=== PATIENT | male | born 1965 | race Caucasian/White ===

== ENCOUNTER 2021-07-31 17:26 | Emergency (ER) | payer OTHER, SELFPAY ==
[2021-07-31 17:32] VITALS: BP 148/88; PULSE 77; RESP 16; TEMP 35.9; O2SAT 99
[2021-07-31 17:36] VITALS: BP 148/88; PULSE 77; RESP 16; TEMP 35.9; O2SAT 99
--- NOTE | 2021-07-31 17:37 | ED.URI ---
HPI - URI/Sore Throat General Chief Complaint: Upper Respiratory Infection Stated Complaint: sore throat,left ear pain Time Seen by Provider: 07/31/21 17:37 Source: patient Mode of arrival: ambulatory Limitations: no limitations History of Present Illness HPI Narrative: 56-year-old male presented for complaint of sore throat and left ear pain, onset today. Endorses the ear pain is intermittent, sharp and shooting. States he takes a daily allergy medication and took an extra dose this evening. Has not taken anything for pain. Denies associated headache, tinnitus, dizziness, nausea, vomiting, fevers or chills. He has not posted for COVID stated for flu. He denies sick contacts. Related Data Home Medications Medication Instructions Recorded Confirmed amlodipine 07/31/21 hydrochlorothiazide 07/31/21 Allergies Allergy/AdvReac Type Severity Reaction Status Date / Time No Known Allergies Allergy Verified 05/16/12 18:20 Review of Systems Review of Systems: All systems reviewed & are unremarkable except as noted in HPI and below PMFSH Comments At time of signature, agree with nursing past medical, surgical, social and family history. There is no relevant family history pertinent to the presenting complaint Exam Narrative: GENERAL: Well-appearing HEAD: Normocephalic EYES: conjunctivae clear ENT: Nares clear. Mucous membranes moist. Right TM pearly roberts with dull light reflex, left canal erythematous with fluid and bulging TM; no tragal tenderness. Oropharynx not erythematous without lesions. no drooling, no hoarseness, no trismus, uvula midline. NECK: Supple. No lymphadenopathy CHEST: Clear to auscultation, breath sounds equal. HEART: Regular rate and rhythm. No murmur heard. SKIN: Warm, dry, no rash. NEURO: Alert and oriented x3. PSYCH: Normal mood and affect Course Course Emergency Course: Patient is aware of diagnosis, understands and agrees to treatment plan. Anticipatory guidance given. Patient agrees to follow-up as directed and is aware of reasons to seek care at the emergency department. Portions of this record may have been created with voice recognition software Level of Care: Express Care Visit Vital Signs Vital signs: Vital Signs Temperature 96.7 F L 07/31/21 17:32 Pulse Rate 77 07/31/21 17:32 Respiratory Rate 16 07/31/21 17:32 Blood Pressure 148/88 H 07/31/21 17:32 Pulse Oximetry 99 07/31/21 17:32 Oxygen Delivery Room Air 07/31/21 17:32 Temperature 96.7 F L 07/31/21 17:36 Pulse Rate 77 07/31/21 17:36 Respiratory Rate 16 07/31/21 17:36 Blood Pressure 148/88 H 07/31/21 17:36 Pulse Oximetry 99 07/31/21 17:36 Oxygen Delivery Room Air 07/31/21 17:36 Reviewed MDM - URI/Sore Throat MDM Narrative Medical decision making narrative: Based on PE he is advised on supportive treatments for allergic rhinitis, and if no improvement he can start the abx. v/u. Differential Diagnosis Differential diagnosis: Likely upper respiratory infection, otitis media, viral infection and pharyngitis Discharge Plan Discharge Clinical Impression: Otitis media Qualifiers: Otitis media type: suppurative Chronicity: acute Laterality: left Recurrence: non-recurrent Spontaneous tympanic membrane rupture: without spontaneous rupture Qualified Code(s): H66.002 - Acute suppurative otitis media without spontaneous rupture of ear drum, left ear Patient Disposition: Home, Self-Care Condition: Stable Instructions: Antibiotic Form, Ear Infection (ED) Additional Instructions: Take antibiotics as directed. Continue antihistamine such as Benadryl, Zyrtec or Cecy for sinus congestion Flonase nasal spray, 1 spray in each nostril once daily Symptomatic treatment includes: rest, fluids, and increase humidity of the air at home. Tylenol 1000mg every 8 hours as needed to reduce fever, pain, alternate with ibuprofen 600 mg every 8 hours Please schedule a follow-up visit wi
== END 2021-07-31 17:45 | disposition home or self-care (01) ==
PROVIDERS: Emergency Provider Nurse Practitioner Family; PCP Family Medicine
DX: H66.002 Acute suppurative otitis media without spontaneous rupture of ear drum, left ear (principal); E78.00 Pure hypercholesterolemia, unspecified; I10 Essential (primary) hypertension
CPT/HCPCS: 99203; G0463

== ENCOUNTER 2024-09-28 06:52 | Outpatient (CLI) | payer OTHER, SELFPAY ==
--- OUTSIDE RECORDS SUMMARY | 2024-09-28 06:54 | XMS_ITS | Encounter Summary ---
Author Organization [facility] Healthcare Address [address] [place] [address] Care Team Providers Care Interline Clerk Name Role Phone Wil Chavira MD Primary Care Provider [phone] Encounter Details Date Type Department Care Team (Late st Contact Info) Description 08/30/2024 Results Follow-Up [facility] Primary Care at [id number] [place] [address] Wil Chavira MD [address] [place] [address] [address] [place] [address] Lipid panel, Comprehensive metabolic panel, CBC with auto differential, Hemoglobin A1c Social History Tobacco Use Types Packs/Day Years Used Date Smoking Tobacco: Never Cigarettes Passive Smoke Exposure: Never Smokeless Tobacco: Never Alcohol Use Standard Drinks/Week Comments Yes 0 (1 standard drink = 0.6 oz pur e alcohol) AUDIT-C Answer Date Recorded Q1: How often do you have a drink containing alc ohol? Monthly or less 01/13/2023 Q2: How many drinks containi ng alcohol do you have on a typical day when you are drinking? 1 or 2 01/13/2023 Q3: How often do you have si x or more drinks on one occasion? Monthly 01/13/2023 PHQ-2 Answer Date Recorded PHQ-2 Total Score (If total score is 3 or more points, staff should administer the PHQ-9) 0 02/12/2024 Exercise Vital Sign Answer Date Recorde d On average, how many days pe r week do you engage in moderate to strenuous exercise (like a brisk walk)? 3 days 05/23/2020 On average, how many minutes do you engage in exercise at this level? 90 min 05/23/2020 Education Answer Date Recorded What is the highest level of school you have completed or the highest degree you have received? 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
--- OUTSIDE RECORDS SUMMARY | 2024-09-28 06:54 | XMS_ITS | Encounter Summary ---
Author Organization [facility] Healthcare Address [address] [place] [address] Care Team Providers Care Senior Clinical Project Manager Name Role Phone Wil Chavira MD Primary Care Provider [phone] Reason for Visit * Reason Onset Date Comments Medical Question/Miscellaneous 09/22/2024 Encounter Details Date Type Department Care Team (Late st Contact Info) Description 09/22/2024 Telephone [facility] Medical [facility] Primary Care at [address] [address] Wil Chavira MD [address] [place] [id number] Medical Question/Miscellaneous Social History Tobacco Use Types Packs/Day Years Used Date Smoking Tobacco: Never Passive Smoke Exposure: Never Smokeless Tobacco: Never [...] points, staff should administer the PHQ-9) 0 09/20/2024 Exercise Vital Sign Answer Date Recorde d [...] on file 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 Patient was seen in the office on 09/20 but those notes do not include any mention of his cpap usage, whether or not he is benefiting from the use, and any issues. Patient does have a 3 month follow up appt on 12/15 but that will be too late for a cpap follow up. [facility] home medical will reach out to the patient and encourage him to make a sooner appt. Does message need to be routed? No Benefiting, showing improvement, issues documented in this encounter Plan of Treatment Not on file documented as of this encounter Visit Diagnoses Not on filedocumented in this encounter Care Teams Senior Clinical Project Manager Relationship Specialty Start Date End Date Wil Chavira MD [address] [address] PCP - General 05/31/16 documented as of this encounter
--- OUTSIDE RECORDS SUMMARY | 2024-09-28 06:55 | XMS_ITS | Encounter Summary ---
Author Organization [facility] Address [address] [place] [address] Phone Care Team Providers Care Die Maker Bench Stamping Name Role Phone Provider, None Primary Care Provider Mengabl e Encounter Details Date Type Department Care Team (Late st Contact Info) Description 10/10/[address] [facility] Ad[facility] [address] [place] [address] Rico Rodriguez [address] [facility] [address] [place] [address] Social History Tobacco Use Types Packs/Day Years Used Date Smoking Tobacco: Never Assessed Sex and Gender Information Value Date Recorded Sex Assigned at Male 10/10/2023 3:25 PM CDT Legal Sex Male 3:15 PM CDT Gender Identity Not on file Sexual Orientation Not on file documented as of this encounter Plan of Treatment Not on file documented as of this encounter Visit Diagnoses Not on filedocumented in this encounter Care Teams Die Maker Bench Stamping Relationship Specialty Start Date End Date Provider, None [place] PCP - General 10/10/23 documented as of this encounter
--- OUTSIDE RECORDS SUMMARY | 2024-09-28 06:55 | XMS_ITS | Clinical Summary ---
Author Organization [facility] Address [address] [place] [address] Phone Care Team Providers Care Crop And Soil Scientist Name Role Phone Provider, None Primary Care Provider Unavailabl e Social History Tobacco Use Types Packs/Day Years Used Date Smoking Tobacco: Never Assessed Sex and Gender Information Value Date Recorded Sex Assigned at Male 10/10/2023 3:25 PM CDT Legal Sex Male 3:15 PM CDT Gender Identity Not on file Sexual Orientation Not on file Plan of Treatment Health Maintenance Due Date Last Done Comments Hepatitis C Virus (HCV) Screening 1966 Hepatitis B Immunization (1 of 3 - 19+ 3-dose series) 1985 Cologuard 2011 Immunochemical Fecal Occult Blood 2011 Zoster Immunization (1 of 2) 2016 PSA Discussion 2021 SARS-COV-2 Immunization ( - 2023- season) 2023 06/27/2020, 05/15/2020 Influenza Immunization (#1) 2024 01/31/2022 Colonoscopy 04/28/2028 04/28/2018 Colorectal Cancer Screening 04/28/2028 Respiratory Syncytial Virus (RSV) Immunization (Adult) (1 - 1-dose 75+ series) 2041 TdaP Immunization Completed 03/18/2011 Pneumococcal Immunization (5 0+ years) Completed 06/17/2023 Pneumococcal Immunization Combined Discontinued 06/17/2023 Human Papillomavirus (HPV) Immunization Aged Out No longer eligible based on patient's age to complete this topic Meningococcal Immunization (ACWY) Aged Out No longer eligible based on patient's age to complete this topic Rotavirus Immunization Aged Out No lo nger eligible based on patient's age to complete this topic Insurance GENERIC Care Teams Crop And Soil Scientist Relationship Specialty Start Date End Date Provider, None [place] PCP - General 10/10/23
--- OUTSIDE RECORDS SUMMARY | 2024-09-28 06:55 | XMS_ITS | Referral Summary ---
Author Organization [facility] Building [address] Address [address] [place] [address] Care Team Providers Care Receivables Specialist Name Role Phone Wil Chavira MD Primary Care Provider Encounters Date Type Department Care Team Description 09/22/2024 Telephone [facility] at [address] [phone] Wil Chavira MD Medical Question/Miscellaneous 09/20/2024 4:15 PM CDT Office Visit [facility] at [address] [address] Wil Chavira MD Benign hypertension (Primary Dx); Multiple-type hyperlipidemia; Obesity, diabetes, and hypertension syndrome (HCC); Decreased hearing, bilateral; Multiple-type hyperlipidemia 08/30/2024 Results Follow-Up [facility] at [address] [phone] Wil Chavira MD Lipid panel, Comprehensive metabolic panel, CBC with auto differential, Hemoglobin A1c 08/27/2024 Orders Only [facility] at [address] [address] Wil Chavira MD from Last 3 Months Allergies Active Allergy Reactions Criticality Noted Date Comments Losartan Diarrhea Low 06/20/2020 Other Stomach upset Low 03/15/2024 Statin medication Medications metFORMIN XR (GLUCOPHAGE XR) 500 mg 24 hr tabletIndications: Uncontrolled type 2 diabetes mellitus with hyperglycemia (HCC) TAKE ONE TABLET (500 MG TOTAL) BY MOUTH DAILY WITH BREAKFAST 90 tablet 3 01/22/20 24 Active amLODIPine (NORVASC) 5 mg tabletIndications: Obesity, diabetes, and hypertension syndrome (HCC) Take 2 tablets (10 mg total) by mouth daily 01/22/20 24 Active tadalafiL (CIALIS) 20 mg tabletIndications: Low libido Take 1 tablet (20 mg total) by mouth daily as needed for erectile dysfunction 10 tablet 3 03/15/19 25 Active hydroCHLOROthiazid e 12.5 mg tabletIndications: Obesity, diabetes, and hypertension syndrome (HCC) Take 1 tablet (12.5 mg total) by mouth daily 90 tablet 3 03/24/19 25 026 Active icosapent ethyL (VASCEPA) 1 gram capsuleIndications :Multiple-type hyperlipidemia TAKE TWO CAPSULES (2 GRAM TOTAL) BY MOUTH TWO (2) TIMES A DAY 400 capsule 1 04/19/19 25 Active pitavastatin calcium (LIVALO) 2 mg tabletIndications: Multiple-type hyperlipidemia Take 1 tablet (2 mg total) by mouth nightly 30 tablet 2 09/21/19 25 Active pitavastatin calcium (LIVALO) 2 mg tabletIndications: Multiple-type hyperlipidemia Take 1 tablet (2 mg total) by mouth nightly 30 tablet 2 03/15/19 25 025 Discontin ued(Reord er) Active Problems Problem Noted Date Diagnosed Date Sleep apnea 03/31/2024 Class 1 obesity due to exces s calories without serious comorbidity with body mass index (BMI) of 33.0 to 33.9 in adult 03/15/2024 Assessment & Plan (03/15/2024 10:53 AM DIRECTOR INTERNATIONAL): BMI Follow-up includes: nutrition counseling, exercise counseling, and education provided. Obesity, diabetes, and hypertension syndrome Assessment & Plan (02/13/2024 10:36 AM DIRECTOR INTERNATIONAL): BMI Follow-up includes: nutrition counseling, exercise counseling, and education provided. Assessment & Plan (06/17/2023 3:35 PM CDT): Blood Pressure Follow-up: Lifestyle modifications education provided on sodium reduction, increase physical activity, reduce alcohol consumption, and weight reduction. BMI Follow-up includes: nutrition counseling, exercise counseling, and education provided. Assessment & Plan (03/20/2023 1:54 PM DIRECTOR INTERNATIONAL): BMI Follow-up includes: nutrition counseling, exercise counseling, and education provided. 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 Number should be on the referral order sheet. A1c was 10.7%, normal is between 4.5 and 5.7% and the threshold for diabetes is 6.5%. This means your blood sugar is running around 260 g per dL on average. Given the elevation, I will forego the confirmatory A1c. I am encouraging cutting carb intake to less than 25 g of carbohydrate per meal, or under 75-80 g of carbohydrate per day. Discussed increasing protein intake, could aim for about 60 g per day broken up in divided meals. Exercise should be part of the equation. Regular exercise approximately 150 minutes per week of moderate cardio were 75 minutes per week of vigorous cardio should be a goal. Screening for colon cancer 04/09/2018 Overview (04/09/2018): Added automatically from request for surgery [id number] Left sided sciatica 06/02/2017 Multiple-type hyperlipidemia 07/17/2013 Overview (06/06/2016): Mixed hyperlipidemia Assessment & Plan (06/20/2020 4:34 PM CDT): Just started his Crestor as of yesterday (06/19). Benign hypertension 07/17/2013 Overview (06/08/2016): Benign hypertension Assessment & Plan (06/21/2020 9:09 AM CDT): BP mildly elevated in office, has not been taking the Losartan d/t diarrhea though. Will have patient start Amlodipine-potential side effects reviewed, keep BP log and bring to f/u in 4 weeks. If noticing BP consistently >140/90 he is to reach out sooner for possible increase. Immunizations Immunization Administration Dates Next Due Influenza, Quadrivalent, Spl it, Preservative Free, Intramuscular 01/31/2022 Influenza, Unspecified 03/15/2024(Deferr ed: Patient Refused),01/20/2024(Deferred: Patient Refused),03/18/2023(Deferred: Patient Refused),03/04/2023(Deferred: Patient Refused),10/01/2022(Deferred: Patient Refused),08/31/2022(Deferred: Patient Refused),03/03/2022(Deferred: Patient Refused),03/03/2021(Deferred: Patient Refused),03/03/2020(Deferred: Patient Refused),12/02/2019(Deferred: Patient Refused),12/01/2018(Deferred: Patient Refused),04/09/2018(Deferred: Patient Refused) Pfizer SARS-CoV-2 Monovalent Vaccination (12+ Yrs) PURPLE 05/15/2020 Pneumococcal Conjugate Pcv20 06/17/2023 Tdap 03/18/2011 Social History Tobacco Use Types Packs/Day Years Used Date Smoking Tobacco: Never Passive Smoke Exposure: Never Smokeless Tobacco: Never Tobacco Cessation:Counseling Given: Not Answered Alcohol Use Standard Drinks/Week Comments Yes 0 [...] on file Legal Sex Male 1:29 PM DIRECTOR INTERNATIONAL Gender Identity Not on file Sexual Orientation Not on file 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 Not on file Not on file Last Filed Vital Signs Vital Sign Reading Time Taken Comments Blood Pressure 124/82 09/20/2024 4:13 PM CDT Pulse 70 09/20/2024 4:13 PM CDT Temperature 36.5 C (97.7 F) 09/20/2024 4:13 PM CDT Respiratory Rate 16 03/15/2024 10:47 AM DIRECTOR INTERNATIONAL Oxygen Saturation 97% 09/20/2024 4:13 PM CDT Inhaled Oxygen Concentration - - Weight 105.7 kg (233 lb) 09/20/2024 4:13 PM CDT Height 177.8 cm (5' 10) 09/20/2024 4:13 PM CDT Body Mass Index 33.43 09/20/2024 4:13 PM CDT Plan of Treatment Not on file Procedures Procedure Name Priority Date/Time Associated Diagnosis Comments HEMOGLOBIN A1C Routine 08/27/2024 8:41 AM CDT CBC WITH AUTO DIFFERENTIAL Routine 08/27/2024 8:41 AM CDT COMPREHENSIVE METABOLIC PANEL Routine 08/27/2024 8:41 AM CDT LIPID PANEL Routine 08/27/2024 8:41 AM CDT PSA SCREEN Routine 01/20/2024 12:22 PM DIRECTOR INTERNATIONAL DIABETES EYE EXAM Routine 12/30/2022 COLONOSCOPY 04/28/2018 12:53 PM DIRECTOR INTERNATIONAL from Last 3 Months or Most Recently Relevant to Health Maintenance Results * CBC with auto differential (08/27/2024 8:41 AM CDT) WBC 4.4 3.8 - 10.8 Thousand/u L [facility] RBC, POC 5.07 4.20 - 5.80 Million/uL [facility] Hgb 16.0 13.2 - 17.1 g/dL [facility] Hct 46.6 38.5 - 50.0 % [facility] MCV 91.9 80.0 - 100.0 fL [facility] MCH 31.6 27.0 - 33.0 pg [facility] MCHC 34.3 32.0 - 36.0 g/dL [facility] Comment: For adults, a slight decrease in the calculated MCHC value (in the range of 30 to 32 g/dL) is most likely not clinically significant; however, it should be interpreted with caution in correlation with other red cell parameters and the patient's clinical condition. Rdw 12.8 11.0 - 15.0 % [facility] Platelets 214 140 - 400 Thousand/u L [facility] MPV 9.7 7.5 - 12.5 fL [facility] Neutrophils, abs 2,530 1,500 - 7,800 cells/uL [facility] Lymphocytes, abs 1,294 850 - 3,900 cells/uL [facility] Monocyte abs 427 200 - 950 cells/uL [facility] Eosinophils, abs 119 15 - 500 cells/uL [facility] Basophils, abs 31 0 - 200 cells/uL [facility] Neutrophils 57.5 % [facility] Lymphocyte pct 29.4 % [facility] Monocytes 9.7 % [facility] Eosinophils 2.7 % [facility] Basophils 0.7 % [facility] 08/27/2024 8:41 AM CDT 08/27/2024 8:43 AM CDT Wil Chavira MD LAB BLOOD ORDERABLES Final Result Performing Organization Address [facility] de Phone Number [facility] [address] [place] [address] * (ABNORMAL) Hemoglobin A1c (08/27/2024 8:41 AM CDT) Hgb A1C 6.3(H) <5.7 % of total Hgb [facility] Comment: For someone without known diabetes, a hemoglobin A1c value between 5.7% and 6.4% is consistent with prediabetes and should be confirmed with a follow-up test. For someone with known diabetes, a value <7% indicates that their diabetes is well controlled. A1c targets should be individualized based on duration of diabetes, age, comorbid conditions, and other considerations. This assay result is consistent with an increased risk of diabetes. Currently, no consensus exists regarding use of hemoglobin A1c for diagnosis of diabetes for children. 08/27/2024 8:41 AM CDT 08/27/2024 8:43 AM CDT Wil Chavira MD LAB BLOOD ORDERABLES Final Result Performing Organization Address [facility] de Phone Number [facility] [address] [place] [address] * (ABNORMAL) Lipid panel (08/27/2024 8:41 AM CDT) Cholesterol 240(H) <200 mg/dL [facility] HDL 41 > OR = 40 mg/dL [facility] Triglycerides 134 <150 mg/dL [facility] LDL 172(H) mg/dL (calc) [facility] Comment: Reference range: <100 Desirable range <100 mg/dL for primary prevention; <70 mg/dL for patients with CHD or diabetic patients with > or = 2 CHD risk factors. LDL-C is now calculated using the Neel calculation, which is a validated novel method providing better accuracy than the Friedewald equation in the estimation of LDL-C. Raphael LEE et al. KELLIE. 2013;310(19): 8637-2260 (http://education.Prospectvision/faq/RXH670) Chol/HDL ratio 5.9(H) <5.0 (calc) [facility] Non-HDL, (LDL+VLDL) 199(H) <130 mg/dL (calc) [facility] Comment: For patients with diabetes plus 1 major ASCVD risk factor, treating to a non-HDL-C goal of <100 mg/dL (LDL-C of <70 mg/dL) is considered a therapeutic option. 08/27/2024 8:41 AM CDT 08/27/2024 8:43 AM CDT us Wil Chavira MD LAB BLOOD ORDERABLES Final Result [facility] [address] [place] [address] * (ABNORMAL) Comprehensive metabolic panel (08/27/2024 8:41 AM CDT) Glucose 120(H) 65 - 99 mg/dL [facility] Comment: Fasting reference interval For someone without known diabetes, a glucose value between 100 and 125 mg/dL is consistent with prediabetes and should be confirmed with a follow-up test. BUN 16 7 - 25 mg/dL [facility] Creatinine 0.95 0.70 - 1.30 mg/dL [facility] eGFR 93 > OR = 60 mL/min/1.7 3m2 [facility] BUN/creat ratio SEE NOTE: 6 - 22 (calc) [facility] Comment: Not Reported: BUN and Creatinine are within reference range. Sodium 136 135 - 146 mmol/L [facility] Potassium, pl 4.0 3.5 - 5.3 mmol/L [facility] Chloride 100 98 - 110 mmol/L [facility] CO2 28 20 - 32 mmol/L [facility] Calcium 9.3 8.6 - 10.3 mg/dL [facility] Protein, sr 7.4 6.1 - 8.1 g/dL [facility] Albumin 5.0 3.6 - 5.1 g/dL [facility] GLOBULIN 2.4 1.9 - 3.7 g/dL (calc) [facility] Alb/glob ratio 2.1 1.0 - 2.5 (calc) [facility] Bilirubin, total 1.7(H) 0.2 - 1.2 mg/dL [facility] Alk phos 73 35 - 144 U/L [facility] AST 18 10 - 35 U/L [facility] ALT (SGPT) 23 9 - 46 U/L [facility] 08/27/2024 8:41 AM CDT 08/27/2024 8:43 AM CDT Wil Chavira MD LAB BLOOD ORDERABLES Final Result Performing Organization Address City/State/[facility] Co de Phone Number [facility] [address] [place] [address] * PSA screen (01/20/2024 12:22 PM DIRECTOR INTERNATIONAL) PSA 0.97 < OR = 4.00 ng/mL [facility] Comment: The total PSA value from this assay system is standardized against the WHO standard. The test result will be approximately 20% lower when compared to the equimolar-standardized total PSA (Kalin [place]). Comparison of serial PSA results should be interpreted with this fact in mind. This test was performed using the Siemens chemiluminescent method. Values obtained from different assay methods cannot be used interchangeably. PSA levels, regardless of value, should not be interpreted as absolute evidence of the presence or absence of disease. 01/20/2024 12:2 2 PM DIRECTOR INTERNATIONAL 01/20/2024 12:26 PM DIRECTOR INTERNATIONAL Narrative [facility] - 01/21/2024 7:53 AM DIRECTOR INTERNATIONAL FASTING:YES FASTING: YES Wil Chavira MD LAB BLOOD ORDERABLES Final Result [facility] [address] [address] * (ABNORMAL) DIABETES EYE EXAM (12/30/2022) us Historical Provider HEALTH MAINTENANCE Final Result * COLONOSCOPY (04/28/2018 12:53 PM DIRECTOR INTERNATIONAL) Anatomical Region Laterality Modality Other Narrative Procedure Note Rosalba Garcia MD - 04/28/2018 12:53 PM CST [facility] Patient Name: Charanjit Alexandra Procedure Date: 04/28/2018 12:53 PM Date of : 1965 Admit Type: Outpatient Age: 53 Gender: Male Attending MD: Rosalba Garcia M.D. Room: [facility] ENDOSCOPY ROOM 1 Note Status: Finalized Patient Profile: 53 WM, screening, no family h/o colon cancer. Procedure: Colonoscopy Indications: Screening for colorectal malignant neoplasm, This is the patient's first colonoscopy Referring MD: Wil Chavira MD Providers: Rosalba Garcia M.D. Impression: - The entire examined colon is normal. - Internal hemorrhoids. - No specimens collected. Recommendation: - Repeat colonoscopy in 10 years for screeningpurposes. Medicines: Monitored Anesthesia Care Complications: No immediate complications. Estimated Blood Loss: Estimated blood loss: none. Procedure: Pre-Anesthesia Assessment: - Prior to the procedure, a History and Physical was performed, and patient medications and allergieswere reviewed. The patient's tolerance of previous anesthesia was also reviewed. The risks and benefitsof the procedure and the sedation options and riskswere discussed with the patient. All questions were answered, and informed consent was obtained. Prior Anticoagulants: The patient has taken no previous anticoagulant or antiplatelet agents. ASA Grade Assessment: II - A patient with mild systemicdisease. After reviewing the risks and benefits, the patientwas deemed in satisfactory condition to undergo the procedure. The benefits, risks and alternatives of theprocedure and sedation were discussed and informed consent was obtained. All questions were answered. Please referto the signed informed consent document in the medical record. The scope was passed under direct vision.The Pediatric Colonoscope PCF-H190L [id number] was introduced through the anus and advanced to the the cecum, identified by appendiceal orifice andileocecal valve. The colonoscopy was performed without difficulty. The patient tolerated the procedurewell. The quality of the bowel preparation wasexcellent. Findings: The perianal and digital rectal examinations were normal. The cecum appeared normal. The colon (entire examined portion) appeared normal. No polyps and no mass lesions. Internal hemorrhoids were found during retroflexion. The hemorrhoids were medium-sized. Electronically signed by Rosalba Garcia M.D. Rosalba Garcia M.D. 04/28/2018 1:40:54 PM Number of Addenda: 0 Note Initiated On: 04/28/2018 12:53 PM Procedure Code(s): --- Professional --- 03305, Colonoscopy, flexible; diagnostic, including collection of specimen(s) by brushing or washing, when performed (separateprocedure) Diagnosis Code(s): --- Professional --- Z12.11, Encounter for screening for malignant neoplasm of colon K64.8, Other hemorrhoids CPT copyright 2017 [employer]. All rights reserved. The codes documented in this report are preliminary and upon senior living advisor reviewmay be revised to meet current compliance requirements. Recognized by the [employer] for promoting quality in endoscopy Rosalba Garcia MD ENDOSCOPY PROCEDURES Final Result from Last 3 Months or Most Recently Relevant to Health Maintenance Insurance [facility] CMR Advance Directives For more information, please contact: [phone] * Full Code (Latest Code Status on File) Date Activated Date Inactivated Comments 04/28/2018 12:09 PM 04/28/2018 6:06 PM * Full Code Date Activated Date Inactivated Comments 04/28/2018 12:09 PM 04/28/2018 12:09 PM Care Teams Receivables Specialist Relationship Specialty Start Date End Date Wil Chavira MD [address] [facility] [address] [place] [address] PCP - General 05/31/16
--- OUTSIDE RECORDS SUMMARY | 2024-09-28 06:55 | XMS_ITS | Clinical Summary ---
Author Organization [facility] Address [address] [place] [address] Care Team Providers Care Fixing Machine Operator Name Role Phone Wil Chavira MD Primary Care Provider Allergies Active Allergy Reactions Criticality Noted Date [...] 03/15/2024 Assessment & Plan (03/15/2024 10:53 AM SCALPER OPERATOR): BMI Follow-up includes: nutrition counseling, exercise counseling, and education provided. Obesity, diabetes, and hypertension syndrome Assessment & Plan (02/13/2024 10:36 AM SCALPER OPERATOR): BMI Follow-up includes: nutrition counseling, exercise counseling, and education provided. Assessment & Plan (06/17/2023 3:35 PM CDT): Blood Pressure Follow-up: Lifestyle modifications education provided on sodium reduction, increase physical activity, reduce alcohol consumption, and weight reduction. BMI Follow-up includes: nutrition counseling, exercise counseling, and education provided. Assessment & Plan (03/20/2023 1:54 PM SCALPER OPERATOR): BMI Follow-up includes: nutrition counseling, exercise counseling, [...] and improved blood sugars over time Recommending nurse informatics educator visit as well, will order a [...] (04/09/2018): Added automatically from request for surgery [id number] Left sided sciatica 06/02/2017 Multiple-type hyperlipidemia 07/17/2013 [...] to reach out sooner for possible increase. Encounters Date Type Department Care Team Description 09/22/2024 Telephone [facility] Primary Care at [address] [address] Wil Chavira MD Medical Question/Miscellaneous 09/20/2024 4:15 PM CDT Office Visit [facility] Primary Care at [address] [address] Wil Chavira MD Benign hypertension (Primary Dx); Multiple-type hyperlipidemia; Obesity, diabetes, and hypertension syndrome (HCC); Decreased hearing, bilateral; Multiple-type hyperlipidemia 08/30/2024 Results Follow-Up [facility] Primary Care at [address] [address] Wil Chavira MD Lipid panel, Comprehensive metabolic panel, CBC with auto differential, Hemoglobin A1c 08/27/2024 Orders Only [facility] Primary Care at [address] [address] Wil Chavira MD from Last 3 Months Immunizations Immunization Administration Dates Next Due Influenza, Quadrivalent, Spl it, Preservative Free, Intramuscular 01/31/2022 Influenza, Unspecified 03/15/2024(Deferr ed: Patient Refused),01/20/2024(Deferred: Patient Refused),03/18/2023(Deferred: Patient Refused),03/04/2023(Deferred: Patient Refused),10/01/2022(Deferred: Patient Refused),08/31/2022(Deferred: Patient Refused),03/03/2022(Deferred: Patient Refused),03/03/2021(Deferred: Patient Refused),03/03/2020(Deferred: Patient Refused),12/02/2019(Deferred: Patient Refused),12/01/2018(Deferred: Patient Refused),04/09/2018(Deferred: Patient Refused) Pfizer SARS-CoV-2 Monovalent Vaccination (12+ Yrs) PURPLE 05/15/2020 Pneumococcal Conjugate Pcv20 06/17/2023 Tdap 03/18/2011 Surgical History Surgery Date Site/Laterality Comments HAND SURGERY 06/01/2016 - 06/30/2016 Bilateral CARPAL TUNNEL RELEASE Medical History Medical History Date Comments Hypertension Hypercholesteremia Diabetes mellitus (HCC) 2022 Family History Medical History Relation Name Comments Hypertension Brother 2 Brother Hypertension; Leukemia Brother 3 Cancer -leukemi a; Cause of : Cancer -leukemia Cancer Father Don Coronary artery disease Father Don Louise nary artery disease; Dementia Father Don Hypertension Father Don Hypertension; Memory loss Father Don Other Father Don Aortic Stenosis ; Breast cancer Mother Cancer -breast ; Dementia Mother Cancer Other Diabetes Other Relation Name Status Comments Brother 1 (Age 44) Brother 2 Brother Brother 3 Father Don Mother Other Social History Tobacco Use Types Packs/Day Years [...] on file Legal Sex Male 1:29 PM SCALPER OPERATOR Gender Identity Not on file Sexual Orientation Not on file 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 Not on file Not on file Obstetrics History Last Filed Vital Signs Vital Sign Reading Time Taken Comments Blood Pressure 124/82 09/20/2024 4:13 PM CDT Pulse 70 09/20/2024 4:13 PM CDT Temperature 36.5 C (97.7 F) 09/20/2024 4:13 PM CDT Respiratory Rate 16 03/15/2024 10:47 AM SCALPER OPERATOR Oxygen Saturation 97% 09/20/2024 4:13 PM CDT Inhaled Oxygen Concentration - - Weight 105.7 kg (233 lb) 09/20/2024 4:13 PM CDT Height 177.8 cm (5' 10) 09/20/2024 4:13 PM CDT Body Mass Index 33.43 09/20/2024 4:13 PM CDT Plan of Treatment Health Maintenance Due Date Last Done Comments Albumin Creatinine Ratio, Urine 1965 Hepatitis C Screening 1965 Hepatitis B Screening 1984 Zoster Vaccine (1 of 2) 2016 DTaP/Tdap/Td Vaccine (2 - Td or Tdap) 03/18/2021 03/18/2011 Regular Well Visit/Exam 18-64 05/23/2021 05/23/2020 Covid-19 Vaccine (3 - season) 2023 06/27/2020, 05/15/2020 Influenza Vaccine (#1) 2024 01/31/2022 Hemoglobin A1C 02/26/2025 08/27/2024, 01/01, 03/13/2023, Additional history exists Foot Exam 03/15/2025 03/15/2024, 03/15/2024 Lipid Panel 08/27/2025 08/27/2024, 01/01, 03/13/2023, Additional history exists eGFR 08/27/2025 08/27/2024, 01/01, 12/09/2022, Additional history exists Depression Screening 09/20/2025 09/20/2024, 02/12/2024, 06/17/2023, Additional history exists Dilated Eye Exam 09/20/2025 12/30/2022 Postponed f rom 12/31/2023 (Patient declined, but will receive in the future) Prostate Cancer Screening-PSA 01/19/2026 01/20/2024, 12/09/2022, 08/01/2021, Additional history exists Colon Cancer Screening-Colonoscopy 04/28/2028 04/28/2018 Colon Cancer Screening-CT Colonography Discontinued 04/28/2018 Colon Cancer Screening-DNA Stool Discontinued 04/28/2018 Colon Cancer Screening-FIT Discontinued 04/28/2018 Colon Cancer Screening-Sigmoidoscopy Discontinued 04/28/2018 Pneumococcal vaccine <65 Completed 06/17/2023 Procedures Procedure Name Priority Date/Time Associated Diagnosis Comments HEMOGLOBIN A1C Routine 08/27/2024 8:41 AM CDT CBC WITH AUTO DIFFERENTIAL Routine 08/27/2024 8:41 AM CDT COMPREHENSIVE METABOLIC PANEL Routine 08/27/2024 8:41 AM CDT LIPID PANEL Routine 08/27/2024 8:41 AM CDT PSA SCREEN Routine 01/20/2024 12:22 PM SCALPER OPERATOR HM DIABETES EYE EXAM Routine 12/30/2022 COLONOSCOPY 04/28/2018 12:53 PM SCALPER OPERATOR from Last 3 Months or Most Recently Relevant to Health Maintenance Results * CBC with auto differential (08/27/2024 8:41 AM CDT) WBC 4.4 3.8 - 10.8 Thousand/u L [facility] RBC, POC 5.07 4.20 - 5.80 Million/uL [facility] Hgb 16.0 13.2 - 17.1 g/dL [facility] Hct 46.6 38.5 - 50.0 % [facility] MCV 91.9 80.0 - 100.0 fL [facility] MCH 31.6 27.0 - 33.0 pg [facility] MCHC 34.3 32.0 - 36.0 g/dL [facility] Comment: For adults, a slight decrease in the calculated MCHC value (in the range of 30 to 32 g/dL) is most likely not clinically significant; however, it should be interpreted with caution in correlation with other red cell parameters and the patient's clinical condition. Rdw 12.8 11.0 - 15.0 % [facility] Platelets 214 140 - 400 Thousand/u L [facility] MPV 9.7 7.5 - 12.5 fL [facility] Neutrophils, abs 2,530 1,500 - 7,800 cells/uL [facility] Lymphocytes, abs 1,294 850 - 3,900 cells/uL [facility] Monocyte abs 427 200 - 950 cells/uL [facility] Eosinophils, abs 119 15 - 500 cells/uL [facility] Basophils, abs 31 0 - 200 cells/uL [facility] Neutrophils 57.5 % [facility] Lymphocyte pct 29.4 % [facility] Monocytes 9.7 % [facility] Eosinophils 2.7 % [facility] Basophils 0.7 % [facility] 08/27/2024 8:41 AM CDT 08/27/2024 8:43 AM CDT Result [facility] Wil Chavira MD LAB BLOOD ORDERABLES Final Result Performing Organization Address [facility] de Phone Number [facility] [address] [place] [address] * (ABNORMAL) Hemoglobin A1c (08/27/2024 8:41 AM CDT) Hgb A1C 6.3(H) <5.7 % of total Hgb [facility] Comment: For someone without known diabetes, a [...] BLOOD ORDERABLES Final Result Performing Organization Address [facility] Co de Phone Number [facility] [address] [place] [address] * (ABNORMAL) Lipid panel (08/27/2024 8:41 AM CDT) Cholesterol 240(H) <200 mg/dL [facility] HDL 41 > OR = 40 mg/dL [facility] Triglycerides 134 <150 mg/dL [facility] LDL 172(H) mg/dL (calc) [facility] Comment: Reference range: <100 Desirable range <100 mg/dL for primary prevention; <70 mg/dL for patients with CHD or diabetic patients with > or = 2 CHD risk factors. LDL-C is now calculated using the Neel calculation, which is a validated novel method providing better accuracy than the Friedewald equation in the estimation of LDL-C. Raphael LEE et al. KELLIE. 2013;310(19): 4614-2911 (http://education.[employer]/faq/MTF993) Chol/HDL ratio 5.9(H) <5.0 (calc) [facility] Non-HDL, (LDL+VLDL) 199(H) <130 mg/dL (calc) [facility] Comment: For patients with diabetes plus 1 major ASCVD risk factor, treating to a non-HDL-C goal of <100 mg/dL (LDL-C of <70 mg/dL) is considered a therapeutic option. 08/27/2024 8:41 AM CDT 08/27/2024 8:43 AM CDT us Wil Chavira MD LAB BLOOD ORDERABLES Final Result [facility] [address] [place] [address] * (ABNORMAL) Comprehensive metabolic panel (08/27/2024 8:41 AM CDT) Glucose 120(H) 65 - 99 mg/dL [facility] Comment: Fasting reference interval For someone without known diabetes, a glucose value between 100 and 125 mg/dL is consistent with prediabetes and should be confirmed with a follow-up test. BUN 16 7 - 25 mg/dL [facility] Creatinine 0.95 0.70 - 1.30 mg/dL [facility] eGFR 93 > OR = 60 mL/min/1.7 3m2 [facility] BUN/creat ratio SEE NOTE: 6 - 22 (calc) [facility] Comment: Not Reported: BUN and Creatinine are within reference range. Sodium 136 135 - 146 mmol/L [facility] Potassium, pl 4.0 3.5 - 5.3 mmol/L [facility] Chloride 100 98 - 110 mmol/L [facility] CO2 28 20 - 32 mmol/L [facility] Calcium 9.3 8.6 - 10.3 mg/dL [facility] Protein, sr 7.4 6.1 - 8.1 g/dL [facility] Albumin 5.0 3.6 - 5.1 g/dL [facility] GLOBULIN 2.4 1.9 - 3.7 g/dL (calc) [facility] Alb/glob ratio 2.1 1.0 - 2.5 (calc) [facility] Bilirubin, total 1.7(H) 0.2 - 1.2 mg/dL [facility] Alk phos 73 35 - 144 U/L [facility] AST 18 10 - 35 U/L [facility] Willis ALT (SGPT) 23 9 - 46 U/L [facility] 08/27/2024 8:41 AM CDT 08/27/2024 8:43 AM CDT us Wil Chavira MD LAB BLOOD ORDERABLES Final Result [facility] [address] [place] [address] * PSA screen (01/20/2024 12:22 PM SCALPER OPERATOR) PSA 0.97 < OR = 4.00 ng/mL [facility] Comment: The total PSA value from this assay system is standardized against the WHO standard. The test result will be approximately 20% lower when compared to the equimolar-standardized total PSA (Kalin Neodesha). Comparison of serial PSA results should be interpreted with this fact in mind. This test was performed using the Siemens chemiluminescent method. Values obtained from different assay methods cannot be used interchangeably. PSA levels, regardless of value, should not be interpreted as absolute evidence of the presence or absence of disease. 01/20/2024 12:2 2 PM SCALPER OPERATOR 01/20/2024 12:26 PM SCALPER OPERATOR Narrative [facility] - 01/21/2024 7:53 AM SCALPER OPERATOR FASTING:YES FASTING: YES us Wil Chavira MD LAB BLOOD ORDERABLES Final Result [facility] [address] [address] * (ABNORMAL) DIABETES EYE EXAM (12/30/2022) us Historical Provider HEALTH MAINTENANCE Final Result * COLONOSCOPY (04/28/2018 12:53 PM SCALPER OPERATOR) Anatomical Region Laterality Modality Other Narrative Procedure Note Rosalab Garcia MD - 04/28/2018 12:53 PM [facility] Name: Charanjit Alexandra Procedure Date: 04/28/2018 12:53 PM Date of : 1965 Admit Type: Outpatient Age: 53 Gender: Male Attending MD: Rosalba Garcia M.D. Room: [facility] ENDOSCOPY ROOM 1 Note Status: Finalized Patient [...] passed under direct vision.The Pediatric Colonoscope [id number] was introduced through the anus and advanced [...] 12:53 PM Procedure Code(s): --- Professional --- 59735, Colonoscopy, flexible; diagnostic, including collection of specimen(s) by brushing or washing, when performed (separateprocedure) Diagnosis Code(s): --- Professional --- Z12.11, Encounter for screening for malignant neoplasm of colon K64.8, Other hemorrhoids CPT copyright 2017 [employer]. All rights reserved. The codes documented in this report are preliminary and upon interactive art director reviewmay be revised to meet current compliance requirements. Recognized by the [employer] [employer] for promoting quality in endoscopy Rosalba Garcia MD ENDOSCOPY PROCEDURES Final Result from Last 3 Months or Most Recently Relevant to Health Maintenance Insurance [facility] CMR Advance Directives For more information, please contact: [phone] * Full Code (Latest Code Status on File) Date Activated Date Inactivated Comments 04/28/2018 12:09 PM 04/28/2018 6:06 PM * Full Code Date Activated Date Inactivated Comments 04/28/2018 12:09 PM 04/28/2018 12:09 PM Care Teams Fixing Machine Operator Relationship Specialty Start Date End Date Wil Chavira [facility] [address] [facility] [address] [place] [address] PCP - General 05/31/16
== END 2024-09-28 06:53 | disposition home or self-care (01) ==
PROVIDERS: PCP Family Medicine; Visit Provider Family Medicine
DX: H90.3 Sensorineural hearing loss, bilateral (principal); H93.13 Tinnitus, bilateral; H61.23 Impacted cerumen, bilateral
CPT/HCPCS: 92557; 92567

== ENCOUNTER 2025-02-25 08:12 | Outpatient (CLI) | payer OTHER, SELFPAY ==
--- NOTE | ~2025-02-25 | US_ITS ---
US abdomen limited INDICATION: Limited abdominal ultrasound PROCEDURE: Realtime right upper abdominal ultrasound. COMPARISON: No prior studies for comparison. FINDINGS: The pancreas is normal without focal mass or pancreatic ductal dilation. Liver echotexture is increased, consistent with fatty infiltration. There is normal directional flow in the portal vein. There are gallstones. Common bile duct measures 4.6 mm. No sonographic Bass's sign. IMPRESSION: 1: Cholelithiasis. 2: Fatty infiltration of the liver. Reviewed, dictated and finalized at location O. TAPER
== END 2025-02-25 08:13 | disposition home or self-care (01) ==
LOC: GOSHIMG 08:13
PROVIDERS: PCP Nurse Practitioner Adult Health; Visit Provider Nurse Practitioner Adult Health
DX: K80.20 Calculus of gallbladder without cholecystitis without obstruction (principal); K76.0 Fatty (change of) liver, not elsewhere classified
CPT/HCPCS: 76705